=== PATIENT | female | born 1990 | race Caucasian/White ===

== ENCOUNTER 2016-09-22 18:24 | Emergency (ER) | payer BC ==
--- NOTE | 2016-09-22 21:04 | RAD ---
Indication: Head injury. CT of the brain was performed without IV contrast. Ventricular structures are midline. No midline shift is noted. The extra-axial spaces are unremarkable. There is no evidence of intracranial mass or hemorrhage. No other high or low density lesions are identified. Mastoid air cells and paranasal sinuses are clear. IMPRESSION: No intracranial mass or hemorrhage is noted.
[2016-09-22 21:30] VITALS: BP 107/71
--- NOTE | 2016-09-29 14:20 | ED ---
Gonzalo Mendez Aidan, scribed for Miguel Alcazar MD on 09/22/16 at 2116 . Throat Pain/Nasal Congestion - HPI Summary HPI Summary: 26 y/o female presents to the ED with a complaint of acute, constant, moderate visual changes that began last night after she hit her head. She has pain at the inner corner of her left eye and cloudy vision in the left eye. Associated symptoms include nausea S/P hitting her head. Today, her eye has felt strained and her vision has been cloudy. Pt denies any dizziness or vomiting. Hx of migraines. - History of Current Complaint Chief Complaint: EDHeadInjury Time Seen by Provider: 09/22/16 20:43 Hx Obtained From: Patient Onset/Duration: Sudden Onset, Lasting Days - since last night, Still Present Severity: Moderate Associated Signs And Symptoms: Negative: Negative - nausea Cough: None - Allergies/Home Medications Allergies/Adverse Reactions: Allergies Allergy/AdvReac Type Severity Reaction Status Date / Time No Known Allergies Allergy Verified 02/21/16 17:28 PMH/Surg Hx/FS Hx/Imm Hx Endocrine/Hematology History: Denies: Hx Anticoagulant Therapy, Hx Diabetes, Hx Thyroid Disease Cardiovascular History: Denies: Hx Congestive Heart Failure, Hx Deep Vein Thrombosis, Hx Hypertension , Hx Myocardial Infarction, Hx Pacemaker/ICD Respiratory History: Denies: Hx Asthma, Hx Chronic Obstructive Pulmonary Disease (COPD), Hx Lung Cancer, Hx Pneumonia, Hx Pulmonary Embolism GI History: Denies: Hx Gall Bladder Disease, Hx Gastrointestinal Bleed, Hx Ulcer, Hx Urosepsis History: Denies: Hx Kidney Stones, Hx Renal Disease Neurological History: Reports: Hx Migraine Denies: Hx Dementia, Hx Seizures, Hx Transient Ischemic Attacks (TIA) Psychiatric History: Reports: Hx Anxiety, Hx Depression Denies: Hx Schizophrenia, Hx Bipolar Disorder Infectious Disease History: No Infectious Disease History: Denies: Hx Hepatitis, Hx Human Immunodeficiency Virus (HIV), Traveled Outside the [place] in Last 30 Days - Family History Known Family History: Negative: Cardiac Disease, Hypertension Family History: pt denies significant FHx - Social History Occupation: Employed Full-time Lives: Alone Alcohol Use: Occasionally Substance Use Type: Reports: None Smoking Status (MU): Never Smoked Tobacco Review of Systems Constitutional: Negative Eyes: Negative Positive: Other - cloudy vision. Negative: Epistaxis, Dental Pain, Sore Throat , Ear Ache, Nasal Discharge Cardiovascular: Negative Respiratory: Negative Positive: Nausea. Negative: Abdominal Pain, Vomiting, Diarrhea Genitourinary: Negative Musculoskeletal: Negative Skin: Negative Neurological: Negative Psychological: Normal All Other Systems Reviewed And Are Negative: Yes Physical Exam - Summary Physical Exam Summary: Constitutional: Well-developed, Well-nourished, Alert. (-) Distressed Skin: Warm, Dry HENT: Normocephalic; Atraumatic Eyes: Conjunctiva normal Neck: Musculoskeletal ROM normal neck. (-) JVD, (-) Stridor, (-) Tracheal deviation Cardio: Rhythm regular, rate normal, Heart sounds normal; Intact distal pulses; The pedal pulses are 2+ and symmetric. Radial pulses are 2+ and symmetric. (-) Murmur Pulmonary/Chest wall: Effort normal. (-) Respiratory distress, (-) Wheezes, (-) Rales Abd: Soft, (-) Tenderness, (-) Distension, (-) Guarding, (-) Rebound Musculoskeletal: (-) Edema Lymph: (-) Cervical adenopathy Neuro: Alert, Oriented x3 Psych: Mood and affect Normal Triage Information Reviewed: Yes Vital Signs On Initial Exam: Initial Vitals Temp Pulse Resp BP Pulse Ox 97.5 F 78 20 117/68 100 09/22/16 18:53 09/22/16 18:53 09/22/16 18:53 09/22/16 18:53 09/22/16 18:53 Vital Signs Reviewed: Yes Diagnostics - Vital Signs Vital Signs Temp Pulse Resp BP Pulse Ox 09/22/16 20:20 98.0 F 77 16 110/56 100 09/22/16 18:55 98.2 F 69 20 117/68 100 09/22/16 18:53 97.5 F 78 20 117/68 100 - Laboratory Lab Statement: Any lab studies that have been ordered have been reviewed, and results considered in the medical decision making process. - CT BRAIN CT CT Interpretation: No Acute Changes - IMPRESSION: No intracranial mass or hemorrhage is noted. CT Interpretation Completed By: Radiologist EENT Course/Dx - Course Course Of Treatment: 26 y/o female presents with cloudy vision and nausea S/P hitting her head last night. - Diagnoses Provider Diagnoses: Visual disturbance Discharge - Discharge Plan Condition: Good Disposition: HOME Patient Education Materials: Concussion (ED), Blurred Vision (ED), Visual Floaters (ED) Referrals: Esdras Talbot MD [Medical Doctor] - (CALL TOMORROW MORNING AT 8 AM FOR AN APPT TOMORROW MORNING; YOU NEED TO BE SEEN TOMORROW MORNING) The documentation as recorded by the Gonzalo bowen Aidan accurately reflects the service I personally performed and the decisions made by me, Miguel Alcazar MD.
== END 2016-09-22 22:11 | disposition home or self-care (01) ==
LOC: ED 18:24
DX: H53.9 Unspecified visual disturbance (principal)
CPT/HCPCS: 70450; 99282